=== PATIENT | female | born 1990 | race Caucasian/White ===

== ENCOUNTER 2018-09-24 12:43 | Day surgery (SDC) | payer MEDICAID, OTHER ==
[2018-09-24] VITALS (13 sets, daily range): BP systolic 106–123; BP diastolic 56–74; PULSE 70–84; RESP 14–23; Ht 160 cm; Wt 92.7 kg
[~2018-09-24] VITALS: Ht 160 cm; Wt 92.7 kg
[2018-09-24] MEDS ORDERED: LACTATED RINGER'S 1,000 ML IV SCH (14:30)
--- NOTE | 2018-09-24 16:52 | PREAC ---
Date/Time of Note Date/Time of Note DATE: 09/24/18 TIME: 16:51 Anesthesia Eval and Record Evaluation Time Pre-Procedure Interview DATE: 09/24/18 TIME: 16:51 Age 28 Sex female NPO: 8 hrs Preoperative diagnosis Chronic Tonsillitis, SHERYL Planned procedure Intracapsular Adenotonsillectomy Past Medical History Past Medical History: Includes Pulm: Sleep Apnea GI: Obesity Surgery & Anesthesia Issues No known issue Meds Anticoagulation: No Beta Micah within 24 hr: No Reason Beta Micah not given: Pt. not on B-Micah No Active Prescriptions or Reported Meds Current Medications Lactated Ringer's 1,000 ml @ 30 mls/hr Q24H IV ; Start 09/24/18 at 14:30 Meds reviewed: Yes Allergies Coded Allergies: No Known Allergy (Verified Allergy, Mild, 09/27/07) Allergies Reviewed: Yes Labs/Studies Labs Reviewed: Reviewed by anesthesiologist test: Negative Studies: ECG (n/a), CXR (n/a) Pre-procedure Exam Last vitals Vital Signs Date Temp Pulse Resp B/P (MAP) Pulse Ox O2 O2 Flow FiO2 Time Delivery Rate 09/24/18 97.7 83 16 123/63 97 Room Air 13:50 (83) Airway: Adequate mouth opening, Adequate thyromental dist Mallampati: Mallampati II Teeth: Normal Lung: Normal Heart: Normal ASA Physical Status ASA physical status: 2 Emergency: None Planned Anesthetic General/MAC: ETT Planned Pain Management Parenteral pain med Pre-operative Attestations Prior to commencing anesthesia and surgery, the patient was re-evaluated, there was verification of: *The patient's identity *The results of appropriate recent lab work and preoperative vital signs *The above evaluation not changing prior to induction *Anesthetic plan, risk benefits, alternative and complications discussed with patient/family; questions answered; patient/family understands, accepts and wishes to proceed. SAMIA HEALY MD Sep 24, 2018 16:52
[2018-09-24] MEDS ORDERED: FENTAnyl 50 MCG/ML VIAL ONE (16:57)
[2018-09-24] MEDS ORDERED: ROCURONIUM 50 MG INJ ONE (16:57)
[2018-09-24] MEDS ORDERED: PROPOFOL 20 ML ONE (16:57)
[2018-09-24] MEDS ORDERED: MIDAZOLAM 1 MG/ML 2 ML INJ ONE (16:57)
[2018-09-24] MEDS ORDERED: ONDANSETRON 4 MG INJ IV PRN (17:00)
[2018-09-24] MEDS ORDERED: DIPHENHYDRAMINE 50 MG INJ IV PRN (17:00)
[2018-09-24] MEDS ORDERED: METOCLOPRAMIDE 10 MG INJ IV PRN (17:00)
[2018-09-24] MEDS ORDERED: OXYCODONE/ACETAMINOPHEN (5/325) TAB PO PRN ×2 (17:00→17:30)
[2018-09-24] MEDS ORDERED: HYDROmorphONE 1 MG/5 ML IV SYRINGE IV PRN ×2 (17:00)
[2018-09-24] MEDS ORDERED: FENTAnyl 50 MCG/ML VIAL IV PRN ×2 (17:00)
[2018-09-24] MEDS ORDERED: MEPERIDINE 25 MG INJ IV PRN (17:00)
[2018-09-24] MEDS ORDERED: KETOROLAC 30 MG INJ ONE (17:17)
[2018-09-24] MEDS ORDERED: METOCLOPRAMIDE 10 MG INJ ONE (17:17)
[2018-09-24] MEDS ORDERED: ONDANSETRON 4 MG INJ ONE (17:17)
[2018-09-24] MEDS ORDERED: DEXAMETHASONE 4 MG/ML 5 ML INJ ONE (17:17)
[2018-09-24] MEDS ORDERED: SUGAMMADEX SODIUM 200 MG/2 ML VIAL IV ONE (17:27)
--- NOTE | 2018-09-24 17:28 | HPN ---
Date/Time of Note Date/Time of Note DATE: 09/24/18 TIME: 17:28 Interval H&P Admission Note Pt. seen H&P reviewed: No system changes KARINE GIPSON MD Sep 24, 2018 17:28
--- NOTE | 2018-09-24 17:41 | PAC ---
Date/Time of Note Date/Time of Note DATE: 09/24/18 TIME: 17:40 Post-Anesthesia Notes Post-Anesthesia Note Last documented vital signs Vital Signs Date Temp Pulse Resp B/P (MAP) Pulse Ox O2 O2 Flow FiO2 Time Delivery Rate 09/24/18 97.7 83 16 123/63 97 Room Air 17:50 (83) Activity: WNL Respiratory function: WNL Cardiovascular function: WNL Mental status: Baseline Pain reasonably controlled: Yes Hydration appropriate: Yes Nausea/Vomiting absent: Yes SAMIA HEALY MD Sep 24, 2018 17:41
--- NOTE | 2018-09-24 17:43 | OPR ---
Date/Time of Note Date/Time of Note DATE: 09/24/18 TIME: 17:32 Operative Report Procedure Date: Sep 24, 2018 Preoperative Diagnosis OSAS, CHILANGO Postoperative Diagnosis Same Operation/Procedure Performed Intracapsular adenotonsillectomy. Surgeon see signature line Sandblaster Glass None Anesthesia Type: general Estimated Blood Loss: 50 - 100 ml's Transfusion none Specimen None Grafts/Implants none Complications none Pt Condition Post Procedure: stable Disposition: PACU Indications OSAS, CHILANGO Procedure Description The patient was identified in the holding area with family. We had a discussion with the family to confirm understanding of the risks, benefits, alternatives, and postoperative care associated with the operation. Informed consent was obtained. The patient was taken to the operating room and laid supine on the operating room table. General endotracheal anesthesia was achieved without difficulty. The eyes and face were taped and draped for protection. A eToro Givor mouth gag was used to extend the mouth open. Tonsils were evaluated by inspection and palpation. The palate was evaluated and found to be intact. The left tonsil was addressed first with the Coblation wand. Intracapsular resection was performed in superficial to deep fashion until the superior pharyngeal constrictor muscle was reached. The muscle was not violated and a small amount of tonsil tissue was left overlying. There was superior pole bleeding with redundant tissue that was secured The contralateral tonsil was resected in similar fashion. Next, a laryngeal mirror was used to visualize the nasopharynx. Suction bovie cautery was used to liquify all adenoid tissue in a superficial to deep fashion. A small amount was left over Passavant's ridge to prevent postoperative velopharyngeal insufficiency. The oral cavity and pharynx were irrigated with saline. Inspection revealed no bleeding or oozing. All instruments were removed. Anesthesia was asked to awaken the patient. The patient was extubated and taken to the PACU in stable condition. KARINE GIPSON MD Sep 24, 2018 17:43
== END 2018-09-24 18:47 | disposition home or self-care (01) ==
LOC: SDS 12:43
PROVIDERS: ATTEND Otolaryngology
DX: J35.3 Hypertrophy of tonsils with hypertrophy of adenoids (principal); G47.33 Obstructive sleep apnea (adult) (pediatric)
CPT/HCPCS: 42821; 84703; J1100; J1170; J1885; J2250; J2405; J2765; J3010; Z7512; Z7610